=== PATIENT | female | born 1945 | race Caucasian/White ===

== ENCOUNTER → 2018-04-08 | Emergency (ER) | payer MEDICARE, MEDICAID ==
[~2018-04-08] MED LIST: ALBUTEROL/IPRATROPIUM 3 ML NEB NEB ONE; ALBUTEROL/IPRATROPIUM 3 ML NEB ONE; LISI-374 PO; OMEP40CA48 PO
--- NOTE | 2018-04-08 15:56 | ER Report ---
History and Physical Time Seen By MD: 15:48 Hx. of Stated Complaint: PT FROM [facility], TRAVELING TO [place]. PT WAS SOB, EMS ARRIVED PT WAS 80% ON ROOM AIR. UNABLE TO IMPROVED SATURATION WITHOUT O2. PT HAS COPD HPI/ROS CHIEF COMPLAINT: sob HISTORY OF PRESENT ILLNESS: Pt states she is from [place] and is moving to [facility] to live in her tiny house on her sons property. Pt states that she has copd and usually does not require oxygen just duonebs and spiriva. Pt states she has been using her inhalers but they are not working. PT pulled over and called ems. Pt found to have oxygen level at 80% on room air. Pt denies chest pain, no fevers or cough. no pleuritic chest pain. no abd pain. Pt does have a mild wheeze on arrival but states that she has been using her inhalers. Pts blood pressure is elevated on arrival. Pt admits to missing her last 2 days of lisinipril 40mg "i forgot to take some of my meds while driving". no leg pain or swelling. Pt no longer smokes. REVIEW OF SYSTEMS: Constitutional: No fever, no chills. Eyes: No discharge. ENT: No sore throat. Cardiovascular: No chest pain, no palpitations. Respiratory: No cough, + shortness of breath. Gastrointestinal: No abdominal pain, no vomiting. Genitourinary: No hematuria. Musculoskeletal: No back pain. Skin: No rashes. Neurological: No headache. Allergies: Coded Allergies: No Known Drug Allergies (Unverified , 04/08/18) Home Meds Reported Medications Lisinopril (LISINOPRIL) 40 Mg Tablet, 40 MG PO QDAY, TAB 04/08/18 Omeprazole (OMEPRAZOLE) 40 Mg Capsule.dr, 40 MG PO BID, CAP 04/08/18 Past Medical/Surgical History Pmhx: copd, osteoporosis, RA, fibromyalgia, DDD, TIA, HTN Pshx: non contrib Reviewed Nurses Notes: Yes Old Medical Records Reviewed: No (none in system) Smoking Status: Former Smoker Hx Alcohol Use: No Constitutional Vital Sign - Last 24 Hours 04/08/18 04/08/18 04/08/18 04/08/18 15:46 15:48 15:49 16:00 Pulse 95 97 Resp 18 B/P (MAP) 121/108 121/108 (112) 122/104 (110) Pulse Ox 91 81 O2 Delivery Room Air 04/08/18 04/08/18 04/08/18 04/08/18 16:00 16:01 16:16 16:17 Pulse 89 94 89 Resp 14 Pulse Ox 93 95 O2 Flow Rate 5.0 04/08/18 04/08/18 04/08/18 16:17 16:30 16:46 Pulse 86 B/P (MAP) 88/58 (68) Pulse Ox 94 92 O2 Delivery Nasal Cannula O2 Flow Rate 5.0 Physical Exam General Appearance: The patient is alert, has no immediate need for airway protection and no signs of toxicity. Eyes: Pupils equal and round no pallor or injection, EOMI ENT: no pharyngeal erythema or exudates, Mucous membranes are moist, TM are nl b/l Respiratory: There are no retractions,Mild wheezing bl Cardiovascular: Regular rate and rhythm. pulses are equal and symmetrical Gastrointestinal: Abdomen is soft and non tender, no masses, bowel sounds normal, no guarding, no rigidity or rebound Neurological: Cranial nerves II-XII grossly intact, no sensory or motor loss Skin: Warm and dry, no rashes. Musculoskeletal: Neck is supple non tender, no vertebral tenderness Extremities are nontender, non swollen and have full range of motion. DIFFERENTIAL DIAGNOSIS: After history and physical exam differential diagnosis was considered for copd excerbation, acute mountain sickness, sob secondary to elevation Medical Decision Making ED Course/Re-evaluation ED Course PT took her own lisinipril now. Called Resp to give her a treatment and to supply her with home oxygen. 04/08/2018 4:51:35 pm Company is bringing pt her oxygen and then she can go. PTs blood pressure and breathing is better after her medications; however pt still requiring 4 liters nc. 04/08/2018 5:07:39 pm Oxygen will not arrive until 630pm. Will order pt dinner and she can go when pts oxygen arrives. Decision to Disposition Date: Apr 08, 2018 Decision to Disposition Time: 16:53 Depart Departure Latest Vital Signs Vital Signs Date Time Temp Pulse Resp B/P (MAP) Pulse Ox O2 Delivery O2 Flow Rate FiO2 04/08/18 16:46 86 92 04/08/18 16:30 88/58 (68) 04/08/18 16:17 Nasal Cannula 5.0 04/08/18 16:17 14 Impression: Primary Impression: COPD (chronic obstructive pulmonary disease) Additional Impressions: Hypoxia High altitude dyspnea Condition: Improved Disposition: HOME OR SELF-CARE Patient Instructions: COPD (Chronic Obstructive Pulmonary Disease) (DC) Additional Instructions: Your breathing should improve when you go to lower altitude. Use oxygen as needed. You currently are requiring 4 liters It is important that you use your medications as prescribed Follow up with a doctor when you arrive in [facility]. If symptoms worsen prior to your arrival go to nearest emergency room. Problem Qualifiers Primary Impression: COPD (chronic obstructive pulmonary disease) COPD type: unspecified COPD Qualified Codes: J44.9 - Chronic obstructive pulmonary disease, unspecified Additional Impressions: High altitude dyspnea Encounter type: initial encounter Qualified Codes: T70.29XA - Other effects of high altitude, initial encounter MARY MCFARLANE DO Apr 08, 2018 15:56
[2018-04-08 16:30] VITALS: BP 88/58
== END ==
LOC: ER 16:01
DX: J44.9 Chronic obstructive pulmonary disease, unspecified (principal); T70.29XA Other effects of high altitude, initial encounter
CPT/HCPCS: 94640; 99283; J7620

== ENCOUNTER → 2018-04-08 | Outpatient (CLI) | payer MEDICARE, MEDICAID ==
[~2018-04-08] MED LIST changes: -ALBUTEROL/IPRATROPIUM 3 ML NEB NEB ONE; -ALBUTEROL/IPRATROPIUM 3 ML NEB ONE
== END ==
LOC: AMB 14:40
PROVIDERS: ATTEND Nurse Practitioner
DX: R06.00 Dyspnea, unspecified (principal); J44.9 Chronic obstructive pulmonary disease, unspecified; R00.0 Tachycardia, unspecified
CPT/HCPCS: A0425; A0427